=== PATIENT | male | born 1940 | race Two or more races ===

== ENCOUNTER → 2016-09-08 | Outpatient (CLI) | payer MEDICARE, OTHER ==
[~2016-09-08] VITALS: Ht 177.8 cm; Wt 81.6 kg
[~2016-09-08] MED LIST: ADENOSINE 69 MG in GIVE UN-DILUTED 0 ML IV ONE; ADENOSINE 90 MG/30 ML INJ IV ONE; cloNIDine HCL 0.1 MG TAB ONE
== END | disposition home or self-care (01) ==
LOC: Rad HDHVI 08:29
PROVIDERS: ATTEND Internal Medicine Cardiovascular Disease
DX: R42 Dizziness and giddiness (principal); R00.1 Bradycardia, unspecified
CPT/HCPCS: 78452; 93005; 93880; 96374; 96375; A9500; J0153